=== PATIENT | male | born 1940 | race Caucasian/White ===

== ENCOUNTER 2016-04-04 02:41 | Emergency (ER) | payer MEDICARE, BC, OTHER ==
[2016-04-04] MEDS ORDERED: DILAUDID 1 MG/ML AMP ONE (04:39)
== END 2016-04-04 05:48 | disposition home or self-care (01) ==
LOC: ER 02:41
DX: R31.0 Gross hematuria (principal); C67.9 Malignant neoplasm of bladder, unspecified; T83.098A Other mechanical complication of other urinary catheter, initial encounter; Z86.718 Personal history of other venous thrombosis and embolism; Z86.73 Personal history of transient ischemic attack (TIA), and cerebral infarction without residual deficits; E11.9 Type 2 diabetes mellitus without complications; Z87.891 Personal history of nicotine dependence; Z79.01 Long term (current) use of anticoagulants; Z85.72 Personal history of non-Hodgkin lymphomas
CPT/HCPCS: 36415; 80053; 85025; 85610; 85730; 96374; 99283; J1170

== ENCOUNTER 2016-04-22 18:31 | Inpatient (IN) | payer MEDICARE, BC, OTHER ==
[~2016-04-22] VITALS: Ht 177.8 cm; Wt 70.1 kg
[2016-04-22] MEDS ORDERED: ACETAMINOPHEN 325 MG TAB ONE (18:42)
[2016-04-22 21:08] VITALS: BP_SYST 112; RESP 16; TEMP 98.4
[2016-04-22 21:09] VITALS: BP_SYST 108
[2016-04-22] MEDS ORDERED: SODIUM CHLORIDE 0.9% 50 ML IV ONE (21:23)
[2016-04-22] MEDS ORDERED: CEFTRIAXONE 1 GM VIAL ONE (21:23)
[2016-04-22] MEDS ORDERED: BISACODYL 10 MG SUPP RECTAL PRN (21:30)
[2016-04-22] MEDS ORDERED: MORPHINE 2 MG/ML SYR IV PRN (21:30)
[2016-04-22] MEDS ORDERED: ALU/MAG/SIM 30 ML UDC PO PRN (21:30)
[2016-04-22] MEDS ORDERED: ACETAMINOPHEN 325 MG TAB PO PRN (21:30)
[2016-04-22] MEDS ORDERED: MAG HYDROX 30 ML UDC PO PRN (21:30)
[2016-04-22] MEDS ORDERED: ONDANSETRON 4 MG VIAL IV PRN (21:30)
[2016-04-22] MEDS ORDERED: TEMAZEPAM 7.5 MG CAP PO PRN (21:30)
[2016-04-22] MEDS ORDERED: BISACODYL EC 5 MG TAB PO PRN (21:30)
[2016-04-22] MEDS ORDERED: SALINE FLUSH 10 ML FLUSH PRN (21:30)
[2016-04-23] VITALS (7 sets, daily range): BP systolic 100–129; RESP 16–20; TEMP 97.2–98.6; Ht 177.8 cm; Wt 70.1 kg
[2016-04-23] MEDS: SODIUM CHLORIDE 0.9% 1,000 ML IV SCH ×3 (00:08→18:56)
[2016-04-23] MEDS: PIPERACIL/TAZO 3.375GM/50ML 50 ML IV SCH ×5 (00:08→17:07)
[2016-04-23] MEDS: SODIUM CHLORIDE 0.9% FLUSH BAG 500 ML IV SCH (04:15)
[2016-04-23] MEDS: SALINE FLUSH 10 ML FLUSH SCH ×2 (09:25→20:00)
[2016-04-23] MEDS ORDERED: DEXTROSE 50% SYRINGE 50 ML IV PRN (11:50)
[2016-04-23] MEDS ORDERED: GABAPENTIN 100 MG CAP PO PRN (11:50)
[2016-04-23] MEDS ORDERED: GLUCAGON 1 MG VIAL IM PRN (11:50)
[2016-04-23] MEDS: CREON 12000 UNIT PO SCH ×2 (12:23→17:07)
[2016-04-23] MEDS: LEVEMIR INSULIN SUBQ SCH ×2 (12:23→20:26)
[2016-04-23] MEDS: LACTOBACILLUS ACIDOPH CAP PO SCH ×2 (17:07→20:25)
[2016-04-23] MEDS: Rivaroxaban 15 MG TAB PO SCH (17:07)
[2016-04-24] VITALS (8 sets, daily range): BP systolic 125–136; RESP 12–18; TEMP 97–97.9
[2016-04-24] MEDS: PIPERACIL/TAZO 3.375GM/50ML 50 ML IV SCH ×4 (00:23→17:18)
[2016-04-24] MEDS: SODIUM CHLORIDE 0.9% 1,000 ML IV SCH ×2 (04:14→14:13)
[2016-04-24] MEDS: SODIUM CHLORIDE 0.9% FLUSH BAG 500 ML IV SCH ×2 (06:00→20:31)
[2016-04-24] MEDS: SALINE FLUSH 10 ML FLUSH SCH ×2 (08:00→20:00)
[2016-04-24] MEDS: LEVEMIR INSULIN SUBQ SCH ×2 (08:11→20:47)
[2016-04-24] MEDS: Rivaroxaban 15 MG TAB PO SCH ×2 (08:50→17:07)
[2016-04-24] MEDS: CREON 12000 UNIT PO SCH ×3 (08:50→17:07)
[2016-04-24] MEDS: LACTOBACILLUS ACIDOPH CAP PO SCH ×3 (08:50→20:46)
[2016-04-25] MEDS: PIPERACIL/TAZO 3.375GM/50ML 50 ML IV SCH ×5 (01:02→23:36)
[2016-04-25 04:51] VITALS: BP_SYST 147; RESP 20; TEMP 97.5
[2016-04-25] MEDS: SODIUM CHLORIDE 0.9% 1,000 ML IV SCH ×2 (07:21→14:18)
[2016-04-25 07:24] VITALS: BP_SYST 137; RESP 18; TEMP 98.3
[2016-04-25] MEDS: SALINE FLUSH 10 ML FLUSH SCH ×2 (07:26→20:00)
[2016-04-25] MEDS: LACTOBACILLUS ACIDOPH CAP PO SCH ×3 (07:55→20:06)
[2016-04-25] MEDS: Rivaroxaban 15 MG TAB PO SCH ×2 (07:55→16:47)
[2016-04-25] MEDS: CREON 12000 UNIT PO SCH ×3 (07:56→16:47)
[2016-04-25] MEDS: LEVEMIR INSULIN SUBQ SCH ×2 (07:57→20:07)
[2016-04-25 11:49] VITALS: BP_SYST 123; RESP 18; TEMP 98.3
[2016-04-25 15:42] VITALS: BP_SYST 139; RESP 18; TEMP 97.4
[2016-04-25 19:19] VITALS: BP_SYST 115; RESP 18; TEMP 97.3
[2016-04-25 23:17] VITALS: RESP 18
[2016-04-26] VITALS (11 sets, daily range): BP systolic 121–160; RESP 16–20; TEMP 97.3–97.9
[2016-04-26] MEDS: SODIUM CHLORIDE 0.9% 1,000 ML IV SCH ×3 (01:37→16:53)
[2016-04-26] MEDS: SODIUM CHLORIDE 0.9% FLUSH BAG 500 ML IV SCH (06:00)
[2016-04-26] MEDS: PIPERACIL/TAZO 3.375GM/50ML 50 ML IV SCH ×4 (06:24→23:43)
[2016-04-26] MEDS: SALINE FLUSH 10 ML FLUSH SCH ×2 (07:16→20:00)
[2016-04-26] MEDS: LEVEMIR INSULIN SUBQ SCH ×2 (07:56→20:16)
[2016-04-26] MEDS: CREON 12000 UNIT PO SCH ×3 (07:57→16:45)
[2016-04-26] MEDS: LACTOBACILLUS ACIDOPH CAP PO SCH ×3 (07:57→20:14)
[2016-04-26] MEDS: Rivaroxaban 15 MG TAB PO SCH ×2 (07:57→16:45)
[2016-04-27 03:15] VITALS: BP_SYST 130; RESP 20; TEMP 97.8
[2016-04-27] MEDS: SODIUM CHLORIDE 0.9% FLUSH BAG 500 ML IV SCH (03:51)
[2016-04-27] MEDS: PIPERACIL/TAZO 3.375GM/50ML 50 ML IV SCH ×4 (05:45→23:57)
[2016-04-27 07:29] VITALS: BP_SYST 133; RESP 18; TEMP 98.6
[2016-04-27] MEDS: SALINE FLUSH 10 ML FLUSH SCH ×2 (08:00→20:00)
[2016-04-27] MEDS: Rivaroxaban 15 MG TAB PO SCH ×2 (08:11→17:03)
[2016-04-27] MEDS: CREON 12000 UNIT PO SCH ×3 (08:11→17:03)
[2016-04-27] MEDS: LACTOBACILLUS ACIDOPH CAP PO SCH ×3 (08:11→20:29)
[2016-04-27] MEDS: LEVEMIR INSULIN SUBQ SCH ×2 (08:12→20:26)
[2016-04-27 11:40] VITALS: BP_SYST 138; RESP 18; TEMP 97.5
[2016-04-27] MEDS: SODIUM CHLORIDE 0.9% 1,000 ML IV SCH ×2 (14:40→23:56)
[2016-04-27 15:44] VITALS: BP_SYST 123; RESP 18; TEMP 98
[2016-04-27 19:33] VITALS: BP_SYST 110; RESP 20; TEMP 97.3
[2016-04-27 23:47] VITALS: BP_SYST 136; RESP 20; TEMP 98.1
[2016-04-28] VITALS (13 sets, daily range): BP systolic 124–184; RESP 18–20; TEMP 97.5–97.9
[2016-04-28] MEDS: SODIUM CHLORIDE 0.9% FLUSH BAG 500 ML IV SCH (06:00)
[2016-04-28] MEDS: PIPERACIL/TAZO 3.375GM/50ML 50 ML IV SCH ×2 (06:10→11:39)
[2016-04-28] MEDS: SALINE FLUSH 10 ML FLUSH SCH (07:58)
[2016-04-28] MEDS: LEVEMIR INSULIN SUBQ SCH (08:00)
[2016-04-28] MEDS: LACTOBACILLUS ACIDOPH CAP PO SCH (08:00)
[2016-04-28] MEDS: Rivaroxaban 15 MG TAB PO SCH (08:00)
[2016-04-28] MEDS: CREON 12000 UNIT PO SCH ×2 (08:00→12:00)
[2016-04-28] MEDS: SODIUM CHLORIDE 0.9% 1,000 ML IV SCH (09:49)
== END 2016-04-28 16:44 | disposition home or self-care (01) | DRG 699 ==
LOC: ENRESERVDT → ENRESERVTM → ER 18:31 → EMR 21:29 → ENPENDDIS 21:29 → 3NT 23:39
PROVIDERS: ADMIT Family Medicine; ATTEND Family Medicine
DX: T83.511A Infection and inflammatory reaction due to indwelling urethral catheter, initial encounter (principal); N17.9 Acute kidney failure, unspecified; E11.22 Type 2 diabetes mellitus with diabetic chronic kidney disease; E11.65 Type 2 diabetes mellitus with hyperglycemia; N18.3 Chronic kidney disease, stage 3 (moderate); Z79.84 Long term (current) use of oral hypoglycemic drugs; K21.9 Gastro-esophageal reflux disease without esophagitis; I25.10 Atherosclerotic heart disease of native coronary artery without angina pectoris; Z87.891 Personal history of nicotine dependence; Z86.718 Personal history of other venous thrombosis and embolism; Z79.01 Long term (current) use of anticoagulants; D50.0 Iron deficiency anemia secondary to blood loss (chronic); Z85.07 Personal history of malignant neoplasm of pancreas; Z85.72 Personal history of non-Hodgkin lymphomas
CPT/HCPCS: 36415; 51702; 71020; 80053; 81001; 82947; 83605; 85025; 87040; 87088; 87804; 93005; 96361; 96374; 99223; 99232; 99233; 99239